=== PATIENT | female | born 1985 | race Caucasian/White ===

== ENCOUNTER 2016-08-07 20:54 | Emergency (ER) | payer BC | END 2016-08-07 23:20 | disposition left against medical advice (07) | LOC: ER1 20:54 | DX: Z53.21 Procedure and treatment not carried out due to patient leaving prior to being seen by health care provider (principal) ==

== ENCOUNTER 2020-07-09 18:50 | Emergency (ER) | payer BC, OTHER ==
[2020-07-09 20:22] LABS: HEMOGLOBIN 10.5 gm/dl (12.3-15.3); RED BLOOD COUNT 4.75 M/UL (4.00-5.10); WHITE BLOOD COUNT 8.8 K/UL (4.5-11.0)
[2020-07-09 20:29] LABS: BUN/CREATININE RATIO 9 (0-10)
[2020-07-09] MEDS ORDERED: MACROBID 100 M100 MG PO (21:27)
[2020-07-09] MEDS ORDERED: PYRIDIUM200 MG PO (21:27)
[2020-07-09] MEDS ORDERED: ZOFRAN4 MG PO (21:27)
== END 2020-07-09 21:40 | disposition home or self-care (01) ==
LOC: ER1 18:50
PROVIDERS: Physician Assistant
DX: N39.0 Urinary tract infection, site not specified (principal); D64.9 Anemia, unspecified; I10 Essential (primary) hypertension; Z04.9 Encounter for examination and observation for unspecified reason; Z90.49 Acquired absence of other specified parts of digestive tract; Z90.89 Acquired absence of other organs; Z88.5 Allergy status to narcotic agent; Z88.2 Allergy status to sulfonamides
CPT/HCPCS: 80053; 81001; 83605; 83690; 84703; 85025; 87086; 96374; 96375; 99284; J1885; J2405; Q9967

== ENCOUNTER 2020-09-14 18:50 | Emergency (ER) | payer BC, OTHER ==
[~2020-09-14 18:50] MED LIST: MACROBID 100 M100 MG PO; PYRIDIUM200 MG PO; ZOFRAN4 MG PO
[2020-09-15] MEDS ORDERED: ONDANSETRON ODT4 MG SL (01:55)
[2020-09-15] MEDS ORDERED: IBUPROFEN800 MG PO (01:55)
== END 2020-09-15 03:00 | disposition home or self-care (01) ==
LOC: ER1 18:50
DX: S06.0X0A Concussion without loss of consciousness, initial encounter (principal); S16.1XXA Strain of muscle, fascia and tendon at neck level, initial encounter; I10 Essential (primary) hypertension; Z90.49 Acquired absence of other specified parts of digestive tract; Z90.89 Acquired absence of other organs; Z88.2 Allergy status to sulfonamides; F17.200 Nicotine dependence, unspecified, uncomplicated; W22.8XXA Striking against or struck by other objects, initial encounter; Y92.009 Unspecified place in unspecified non-institutional (private) residence as the place of occurrence of the external cause
CPT/HCPCS: 70450; 72125; 96374; 96375; 96376; 99284; J0595; J1200; J1885; J2405; J2765